=== PATIENT | female | born 1990 | race Caucasian/White ===

== ENCOUNTER 2021-05-26 12:49 | Outpatient (CLI) | payer OTHER | END 2021-05-26 13:38 | disposition home or self-care (01) | LOC: NST 12:49 | PROVIDERS: ATTEND Obstetrics & Gynecology Maternal & Fetal Medicine | DX: Z34.83 Encounter for supervision of other normal pregnancy, third trimester (principal) ==

== ENCOUNTER 2021-06-02 14:30 | Outpatient (CLI) | payer OTHER | END 2021-06-02 14:50 | disposition home or self-care (01) | LOC: NST 14:30 → OBS/DEL 14:30 → NST 14:50 | PROVIDERS: ATTEND Obstetrics & Gynecology Maternal & Fetal Medicine | DX: Z34.83 Encounter for supervision of other normal pregnancy, third trimester (principal) ==

== ENCOUNTER 2021-06-07 14:15 | Inpatient (IN) | payer OTHER ==
[~2021-06-07] VITALS: Ht 167.6 cm; Wt 68.0 kg
[2021-06-18] MEDS ORDERED: PRENATAL + DHA1 EAC1 PO (10:05)
[2021-06-19] MEDS ORDERED: ATABEX DHA 200200 MG (10:28)
== END 2021-06-20 13:42 | disposition home or self-care (01) | DRG 807 ==
LOC: OB/GYN 06-17 14:15 → LDR 06-18 08:25 → OB/GYN 06-18 10:25
PROVIDERS: ADMIT Obstetrics & Gynecology; ATTEND Obstetrics & Gynecology
PROC: 10E0XZZ Delivery of Products of Conception, External Approach (ICD-10-PCS; principal; 2021-06-18)
PROC: 0W8NXZZ Division of Female Perineum, External Approach (ICD-10-PCS; 2021-06-18)
PROC: 4A1HXCZ Monitoring of Products of Conception, Cardiac Rate, External Approach (ICD-10-PCS; 2021-06-18)
DX: O80 Encounter for full-term uncomplicated delivery (principal); Z37.0 Single live birth; Z3A.40 40 weeks gestation of pregnancy; Z20.822 Contact with and (suspected) exposure to COVID-19

== ENCOUNTER 2021-06-13 10:42 | Outpatient (CLI) | payer OTHER | END 2021-06-13 11:10 | disposition home or self-care (01) | LOC: NST 10:42 | PROVIDERS: ATTEND Obstetrics & Gynecology | DX: Z34.83 Encounter for supervision of other normal pregnancy, third trimester (principal) ==

== ENCOUNTER 2021-06-16 08:53 | Outpatient (CLI) | payer OTHER | END 2021-06-16 09:25 | disposition home or self-care (01) | LOC: NST 08:53 | PROVIDERS: ATTEND Obstetrics & Gynecology Maternal & Fetal Medicine | DX: Z34.83 Encounter for supervision of other normal pregnancy, third trimester (principal) ==

== ENCOUNTER → 2021-06-17 | Outpatient (CLI) | payer OTHER ==
[~2021-06-17] MED LIST: ATABEX DHA 200200 MG; PRENATAL + DHA1 EAC1 PO
== END | disposition home or self-care (01) ==
LOC: NST 16:28
PROVIDERS: ATTEND Obstetrics & Gynecology
DX: Z34.83 Encounter for supervision of other normal pregnancy, third trimester (principal)